=== PATIENT | female | born 1950 | race Caucasian/White ===

== ENCOUNTER 2016-07-30 16:57 | Inpatient (IN) | payer OTHER, MEDICARE ==
[2016-07-30] VITALS (7 sets, daily range): BP systolic 105–138; BP diastolic 71–80; PULSE 61–78; RESP 16–20; TEMP 97.7–98.5; O2SAT 93–96
[~2016-07-30] VITALS: Ht 167.6 cm; Wt 77.1 kg
[~2016-07-30 16:57] MED LIST: COUM2TAB PO; FISH1000 PO; IRONTAB5 PO; LOVA1TAB47 PO; NABU500T PO; OXYC-360 PO; OYST500T77 PO; SERT100 PO; VITA500L4 PO
[2016-07-30] MEDS ORDERED: NITROGLYCERIN 0.4 MG SL 25 TABS/BTL SL STA (17:08)
[2016-07-30] MEDS ORDERED: SODIUM CHLOR 0.9% 1000 ML INJ 1,000 ML IV ONE (17:08)
--- NOTE | 2016-07-30 17:08 | PD ---
HPI Chief Complaint: General Weakness Time Seen by Provider: 17:08 Travel History International Travel<30 days: No Contact w/Intl Traveler<30days: No Traveled to known affect area: No History of Present Illness HPI Patient 66-year-old female presents emergency Department with substernal chest pain tightness radiating down the left arm and now into her left flank and into the back. Patient states his symptoms started approximate hour ago he become it was shortness of breath. She has history of hyper-lipidemia and smoking. She took 581 mg aspirin prior to arrival. Patient states she feels pretty lousy currently. She's never had pain like this before. No stress test in the past catheterization is never seen a windows software engineer. No recent surgeries no allergies. She does have history of surgical repair of both of her hips as well as breast implants. Patient states the pain is gradually worsening associated with some mild nausea without vomiting. PFSH Past Medical History Arthritis: Yes Blood Disorders: No Cancer: No Cardiovascular Problems: Yes High Cholesterol: Yes Endocrine: No Genitourinary: No Immune Disorder: No Musculoskeletal: Yes Neurologic: No Psychiatric: No Reproductive: No Respiratory: No Past Surgical History Body Medical Devices: FOSTER. BREASTS Joint Replacement: Yes (LEFT THR) Social History Alcohol Use: Yes (OCCAS) Tobacco Use: Yes (1 /2 PPD) Substance Use: No Allergies-Medications (Allergen,Severity, Reaction): Coded Allergies: Sulfa (Verified Allergy, Severe, HIVES, 04/06/08) Reported Meds & Prescriptions Reported Meds & Active Scripts Active Reported Coumadin 2 mg (Warfarin Sodium) 2 Mg Tab 2 Mg PO DAILY 30 Days Percocet (Oxycodone/Acetaminophen) 5 Mg/325 Mg Tab 1 Tab PO DIRECTED FOR PAIN Mevacor (Lovastatin) 20 Mg Tab 20 Mg PO HS Vitamin C (Ascorbic Acid) 500 Mg/5 Ml Syrp 500 Mg PO BID Fish Oil 1,000 Mg Cap 1,000 Mg PO DAILY Calcium 500 Mg Tab 500 Mg PO TID Relafen 500 mg (Nabumetone) 500 Mg Tab 500 Mg PO BID [Iron] 2 Tab PO DAILY Zoloft (Sertraline HCl) 100 Mg Tab 150 Mg PO DAILY Review of Systems Except as stated in HPI: all other systems reviewed are Neg Physical Exam Narrative GENERAL: Well-developed, well-nourished, uncomfortable appearance. SKIN: Focused skin assessment warm/dry. HEAD: Atraumatic. Normocephalic. EYES: Pupils equal and round. No scleral icterus. No injection or drainage. ENT: No nasal bleeding or discharge. Mucous membranes pink and moist. NECK: Trachea midline. No JVD. CARDIOVASCULAR: Regular rate and rhythm. No murmur appreciated. 2+ bilateral equal pulses in all 4 extremities. RESPIRATORY: No accessory muscle use. wheezes in the left upper and left lower lobe. Clear on the right. Breath sounds equal bilaterally. Good air entry bilaterally. GASTROINTESTINAL: Abdomen soft, non-tender, nondistended. Hepatic and splenic margins not palpable. MUSCULOSKELETAL: No obvious deformities. No clubbing. No cyanosis. No edema. NEUROLOGICAL: Awake and alert. No obvious cranial nerve deficits. Motor grossly within normal limits. Normal speech. PSYCHIATRIC: Appropriate mood and affect; insight and judgment normal. Data Data Last Documented VS Vital Signs Date Time Temp Pulse Resp B/P Pulse Ox O2 Delivery O2 Flow Rate FiO2 07/30/16 17:04 97.7 61 20 138/78 Orders Troponin I (07/30/16 17:08) Ckmb (Isoenzyme) Profile (07/30/16 17:08) Complete Blood Count With Diff (07/30/16 17:08) I-Stat Profile (07/30/16 17:08) I-Stat Creatinine (07/30/16 17:08) Calcium (07/30/16 17:08) Magnesium (Mg) (07/30/16 17:08) Prothrombin Time / Inr (Pt) (07/30/16 17:08) Act Partial Throm Time (Ptt) (07/30/16 17:08) B-Type Natriuretic Peptide (07/30/16 17:08) Chest, Single Ap (07/30/16 17:08) Electrocardiogram (07/30/16 17:08) Oxygen Administration (07/30/16 17:08) Iv Access Insert/Monitor (07/30/16 17:08) Oximetry (07/30/16 17:08) Sodium Chlor 0.9% 1000 Ml Inj (Ns 1000 M (07/30/16 17:08) Sodium Chloride 0.9% Flush (Ns Flush) (07/30/16 17:15) Nitroglycerin Sl (Nitrostat Sl) (07/30/16 17:08) Nitroglycerin-Dextrose Inj (Nitroglyceri (07/30/16 17:15) Albuterol Neb (Albuterol Neb) (07/30/16 17:30) Heparin Inj (Heparin Inj) (07/30/16 17:30) Electrocardiogram (07/30/16 ) Admit Order (Ed Use Only) (07/30/16 ) Labs Laboratory Tests Test 07/30/16 17:10 White Blood Count 9.9 TH/MM3 Red Blood Count 4.60 MIL/MM3 Hemoglobin 14.8 GM/DL Bedside Hemoglobin 14.6 G/DL Hematocrit 42.2 % Bedside Hematocrit 43.0 % Mean Corpuscular Volume 91.6 FL Mean Corpuscular Hemoglobin 32.2 PG Mean Corpuscular Hemoglobin 35.1 % Concent Red Cell Distribution Width 13.6 % Platelet Count 256 TH/MM3 Mean Platelet Volume 7.3 FL Neutrophils (%) (Auto) 58.4 % Lymphocytes (%) (Auto) 29.8 % Monocytes (%) (Auto) 9.8 % Eosinophils (%) (Auto) 1.7 % Basophils (%) (Auto) 0.3 % Neutrophils # (Auto) 5.8 TH/MM3 Lymphocytes # (Auto) 2.9 TH/MM3 Monocytes # (Auto) 1.0 TH/MM3 Eosinophils # (Auto) 0.2 TH/MM3 Basophils # (Auto) 0.0 TH/MM3 CBC Comment DIFF FINAL Differential Comment Prothrombin Time 10.7 SEC Prothromb Time International 1.0 RATIO Ratio Activated Partial 26.1 SEC Thromboplast Time Bedside Sodium 141 MMOL/L Bedside Potassium 3.9 MMOL/L Bedside Chloride 104 MMOL/L Bedside Blood Urea Nitrogen 16 MG/DL Bedside Creatinine 1.1 MG/DL Bedside Glucose 141 MG/DL Calcium Level 9.2 MG/DL Magnesium Level 2.0 MG/DL Total Creatine Kinase 71 U/L Troponin I LESS THAN 0.02 NG/ML B-Type Natriuretic Peptide 15 PG/ML MDM Medical Decision Making Medical Screen Exam Complete: Yes Emergency Medical Condition: Yes Interpretation(s) EKG shows normal sinus rhythm with a normal axis and normal R-wave progression. There are ST elevations in V2 through V4 with possible J-point elevation. However there are some minimal ST depressions in 23 and aVF. This does meet criteria for an acute STEMI. Differential Diagnosis STEMI, COPD exacerbation, PE, pneumonia, dissection seems unlikely. Narrative Course Patient is 66-year-old female room in the emergency department. She appears uncomfortable and her EKG is consistent with an acute STEMI. A STEMI alert was activated at 1909. Dr. Granger was paged and I spoke with him at 191. Dr. Granger is at bedside at 1920, he wanted to get a repeat EKG which was repeated and then decision was made to take her to catheter lab. She did have 5x81 mg aspirins prior to arrival. She had orders for heparin and DuoNeb however she did not receive these prior to going to catheter lab. Care was transferred to Dr. Granger. Patient does have wheezing on left side of her chest but says that she does not have a history of COPD or asthma. Her oxygen saturation is appropriate. At this time early reperfusion needs to be her immediate goal of therapy. Discussed with Dr. Granger may receive albuterol on catheter table at his discretion. Last 24 hours Impressions Chest X-Ray 07/30/16 0328 Signed Impressions: Service Date/Time: July 17:07 - CONCLUSION: No acute cardiopulmonary disease identified. Abundio Ervin MD Diagnosis Primary Impression: STEMI (ST elevation myocardial infarction) Qualified Code: I21.3 - ST elevation myocardial infarction (STEMI), unspecified artery Additional Impression: Shortness of breath Admitting Information Admitting Physician Requests: Admit Condition: Serious Matthew Ramírez MD Jul 30, 2016 17:08
[2016-07-30] MEDS ORDERED: NITROGLYCERIN-DEXTROSE INJ 250 ML IV SCH (17:15)
--- NOTE | 2016-07-30 17:25 | RADRPT ---
EXAM DATE/TIME: 07/30/2016 17:07 [facility] COMPARISON: No previous studies available for comparison. INDICATIONS : Stemi Alert. MEDICAL HISTORY : None. SURGICAL HISTORY : None. ENCOUNTER: Initial ACUITY: 1 day PAIN SCORE: 0/10 LOCATION: Bilateral chest FINDINGS: Single AP view of the chest. The lungs are clear. Cardiomediastinal silhouette within normal limits. No evidence of pleural effusion or pneumothorax. Prominent right-sided glenohumeral joint arthrosis. CONCLUSION: No acute cardiopulmonary disease identified. Abundio Ervin MD on July 30, 2016 at 17:23 Board Certified Radiologist. This report was verified electronically.
[2016-07-30] MEDS ORDERED: HEPARIN SODIUM - IV 10,000 UNITS/10 ML VIAL IV ONE (17:30)
[2016-07-30] MEDS ORDERED: RESP: ALBUTEROL 0.63 MG/3 ML NEB (SCH) NEB ONE (17:30)
[2016-07-30 17:34] LABS: AUTOMATED NEUTROPHIL # 5.8 TH/MM3 (1.8-7.7); BASOPHIL % 0.3 % (0.0-2.0); EOSINOPHIL # 0.2 TH/MM3 (0-0.4); EOSINOPHIL % 1.7 % (0.0-4.0); HEMATOCRIT 42.2 % (35.0-46.0); HEMO FLAGS DIFF FINAL; LYMPH % 29.8 % (9.0-44.0); LYMPHOCYTE # 2.9 TH/MM3 (1.0-4.8); MEAN CELL VOLUME 91.6 FL (80.0-100.0); MEAN CORPUSCULAR HEMOGLOBIN 32.2 PG (27.0-34.0); MEAN CORPUSCULAR HGB CONC 35.1 % (32.0-36.0); MONO % 9.8 % (0.0-8.0); NEUT % 58.4 % (16.0-70.0); PLATELET COUNT 256 TH/MM3 (150-450); RED CELL DISTRIBUTION WIDTH 13.6 % (11.6-17.2); WHITE BLOOD COUNT 9.9 TH/MM3 (4.0-11.0)
[2016-07-30] MEDS ORDERED: IOHEXOL 350 MG/ML 100 ML BTL (for Cath Lab) OTHER ONE (17:34)
[2016-07-30] MEDS ORDERED: IOHEXOL 350 MG/ML 50 ML BTL (for Cath Lab) OTHER ONE (17:34)
[2016-07-30 17:36] LABS: I-STAT POTASSIUM 3.9 MMOL/L (3.5-4.9); I-STAT SODIUM 141 MMOL/L (138-146)
[2016-07-30] MEDS ORDERED: HEPARIN-NS/PF INJ 500 ML ONE (17:37)
[2016-07-30] MEDS ORDERED: HEPARIN SODIUM - IV 10,000 UNITS/10 ML VIAL ONE (17:38)
[2016-07-30] MEDS ORDERED: RESP: ALBUTEROL 2.5 MG/3 ML NEB (SCH) ONE (17:42)
[2016-07-30] MEDS ORDERED: STERILE WATER FOR INJECTION 10 ML VIAL ONE (17:45)
[2016-07-30] MEDS ORDERED: BIVALIRUDIN 250 MG VIAL ONE (17:45)
[2016-07-30 17:47] LABS: APTT (PATIENT) 26.1 SEC (24.3-30.1); PROTHROMBIN TIME - PATIENT 10.7 SEC (9.8-11.6)
[2016-07-30 18:02] LABS: CREATINE KINASE 71 U/L (26-192)
[2016-07-30] MEDS ORDERED: FUROSEMIDE 40 MG/4 ML VIAL ONE (18:08)
[2016-07-30] MEDS ORDERED: TICAGRELOR 90 MG TAB PO ONE ×2 (18:14→18:30)
[2016-07-30] MEDS ORDERED: NITROGLYCERIN 0.4 MG SL 25 TABS/BTL SL PRN (18:30)
[2016-07-30] MEDS ORDERED: MISC INFORMATION XX ONE (18:30)
--- NOTE | 2016-07-30 19:15 | MB ---
cc: NADIA VARNER DATE OF CONSULTATION 07/30/16 1951 HISTORY OF PRESENT ILLNESS 66-year-old female active smoker, past medical history of hypertension who presents to the ER with severe of left-sided chest pressure radiating to the back associated with diaphoresis and shortness of breath. EKG done shows anterior STEMI suggestive myocardial injury. STEMI alert was activated. The patient was given aspirin, nitroglycerin and heparin in the ER. Currently, the patient still reports chest discomfort. She denies shortness of breath or palpitations. REVIEW OF SYSTEMS Negative except for the ones mentioned in HPI. PAST MEDICAL HISTORY 1. Hypertension, 2. Active smoker. 3. Bilateral hip surgery 4. Breast implantation SOCIAL HISTORY She is an active smoker. Denies illicit drug use or alcohol abuse. FAMILY HISTORY Noncontributory. PHYSICAL EXAMINATION VITAL SIGNS: Temperature 97, respiratory rate 18, heart rate 60, O2 sat 100% in room air. GENERAL: She is awake, alert and oriented x3 in no acute distress. NECK: No JVD, no carotid bruits. HEART: Regular rate and rhythm. No murmurs, rubs or gallops. LUNGS: There is left inspiratory wheezing. No rales or rhonchi. ABDOMEN: Soft, nontender, nondistended. Positive bowel sounds. EXTREMITIES: No cyanosis or edema. Pulses throughout. LABORATORY DATA The labs are still pending. IMAGING STUDIES Chest x-ray is unremarkable. CARDIOLOGY STUDIES EKG shows sinus rhythm with ST elevations leads V2-V4 ASSESSMENT/PLAN 66-year-old female with cardiac risk factors that include smoking, hypertension that presented with an ST elevation GA. The patient remains hemodynamically stable, did complain of some chest discomfort. Given STEMI, EKG changes and the cardiac complaints, the patient will be taken emergently to the cardiac medical laboratory technicians for PCI. Risks, benefits of left heart cath/intervention including but not limited to bleeding, infection, acute kidney injury, neurovascular trauma, open heart surgery, stroke and have been explained to the patient. The patient understands risks and she is willing to proceed. Continue aggressive medical management. RECOMMENDATIONS 1. LHC/PCI. Thank you for the opportunity to take part in the care of this patient. Further therapy to be determined. MD JP Cleveland/SA /5:37 PM /7:03 PM [facility]USRe[facility]
[2016-07-30] MEDS: METOPROLOL TARTRATE 25 MG TAB PO SCH (20:58)
[2016-07-30] MEDS: ATORVASTATIN 10 MG TAB PO SCH (20:58)
--- NOTE | 2016-07-30 22:27 | MA ---
cc: NADIA VARNER MD DATE 07/30/16 1950 PROCEDURE PERFORMED 1. Left heart catheterization 2. Selective right and left coronary angiography 3. Left ventriculogram 4. Right common femoral artery angiography 5. Successful PCI to proximal LAD in the setting of a STEMI INDICATIONS STEMI. PROCEDURE IN DETAIL Consent signed. The patient was taken emergently to the cardiac medical lab assistant. The right groin was prepped and draped in sterile fashion. Using 1% lidocaine for local anesthesia and a micropuncture kit, a 6-Yoruba sheath was inserted into the right common femoral artery. Right common femoral artery angiography was performed to confirm position of the sheath. Then selective right and left coronary angiography was performed with a JR-4 diagnostic catheter and EBU 3.5 6Fr guide respectively. Angiomax was given for IV anticoagulation. The patient had a 100% occlusion of the mid LAD (JOHAN 0). LM was engaged with EBU guide. A choice PT wire was used to wire the LAD. The wire successfully crossed the lesion and was anchored distally. The lesion was predilated with a 2.5x12mm balloon followed by the insertion and deployment of a [id number] drug-eluting stent. Final angiographic views revealed a good stent apposition and expansion with JOHAN III flow. The patient tolerated the procedure well without complications. Patient had a brief episode of reperfusion rhythm with no major significant. Patient tolerated procedure well without complications. The right groin access site was closed with a Perclose device. Estimated blood loss less than 50 mL. Total contrast 125 mL. The patient was loaded with Brilinta after the procedure. ANGIOGRAPHIC RESULTS LEFT VENTRICLE Left ventricular pressure was 106/19 with an LVEDP of 25. The aortic pressure was 101/45 with a mean of 73. The left ventriculogram revealed a symmetrically jacki left ventricle with an estimated ejection fraction of 60%. There was no gradient upon pullback from the left ventricle to the aorta. ANGIOGRAPHIC RESULTS 1. RCA: Dominant vessel has minimal luminal irregularities throughout. It is calcified. The mid RCA has 20% concentric lesion and 10% also distal lesion. The PDA is patent with JOHAN III flow. 2. Left main patent with JOHAN III flow. 3. The LAD is 100% occluded after the second septal. The first and second diagonals are patent with nonobstructive coronary artery disease. 5. The left circumflex artery has minimal luminal irregularities throughout and it has a proximal 40% lesion and JOHAN III flow. CONCLUSION 1. Successful PCI/JOSÉ to mid-LAD in the setting of ST elevation HI 2. Elevated LVEDP. RECOMMENDATIONS Admit to the cardiac unit. Continue dual antiplatelet agent with aspirin and Brilinta as well as aggressive medical management for secondary prevention of coronary artery disease. The patient should be on aspirin, Brilinta, statins, beta blockers, ESTHELA inhibitors as tolerated. 2-D echocardiogram before discharge. Smoking cessation. MD JP Cleveland/ /6:30 PM /10:09 PM MTDD
[2016-07-31] VITALS (26 sets, daily range): BP systolic 86–105; BP diastolic 54–71; PULSE 51–84; RESP 16–20; TEMP 97.5–98.7; O2SAT 94–97
[2016-07-31 05:39] LABS: AUTOMATED NEUTROPHIL # 6.7 TH/MM3 (1.8-7.7); BASOPHIL % 0.4 % (0.0-2.0); EOSINOPHIL # 0.1 TH/MM3 (0-0.4); EOSINOPHIL % 1.2 % (0.0-4.0); HEMATOCRIT 40.7 % (35.0-46.0); HEMO FLAGS DIFF FINAL; LYMPH % 21.2 % (9.0-44.0); LYMPHOCYTE # 2.1 TH/MM3 (1.0-4.8); MEAN CORPUSCULAR HEMOGLOBIN 31.9 PG (27.0-34.0); MEAN CORPUSCULAR HGB CONC 34.7 % (32.0-36.0); MONO % 10.7 % (0.0-8.0); NEUT % 66.5 % (16.0-70.0); PLATELET COUNT 239 TH/MM3 (150-450); RED BLOOD COUNT 4.42 MIL/MM3 (4.00-5.30); RED CELL DISTRIBUTION WIDTH 13.4 % (11.6-17.2)
[2016-07-31 05:56] LABS: BICARBONATE 26.9 MEQ/L (21.0-32.0); POTASSIUM 3.5 MEQ/L (3.5-5.1)
--- NOTE | 2016-07-31 08:29 | PD.CARD.PN ---
Subjective Subjective Remarks no overnight events no chest pain Objective Medications Current Medications Medications (Trade) Dose Ordered Sig/Sandy Route Start Time Stop Time Status Last Admin Sodium Chloride 2 ml 2 ml UNSCH PRN IVF 07/30/16 17:15 (Nitroglycerin-Dextrose Inj) 250 ml @ 0 mls/hr TITRATE IV 07/30/16 17:15 (Nitrostat Sl) 0.4 mg Q5M PRN SL 07/30/16 18:30 (Lopressor) 12.5 mg BID PO 07/30/16 21:00 07/30/16 20:58 (Prinivil) 5 mg DAILY PO 07/31/16 09:00 (Lipitor) 10 mg HS PO 07/30/16 21:00 07/30/16 20:58 (Aspirin Chew) 81 mg DAILY PO 07/31/16 09:00 (Brilinta) 90 mg BID PO 07/31/16 09:00 Vital Signs / I&O Vital Signs Date Time Temp Pulse Resp B/P Pulse Ox O2 Delivery O2 Flow Rate FiO2 07/31/16 08:00 64 07/31/16 07:00 63 07/31/16 07:00 98.0 71 20 103/71 97 07/31/16 06:00 62 07/31/16 05:00 60 07/31/16 04:00 64 07/31/16 03:00 58 07/31/16 03:00 98.2 67 16 105/63 95 07/31/16 02:00 68 07/31/16 01:00 62 07/31/16 00:00 66 07/30/16 23:00 98.5 78 16 105/71 93 07/30/16 23:00 70 07/30/16 22:00 74 07/30/16 21:00 70 07/30/16 20:00 78 07/30/16 19:00 98.5 72 16 116/80 93 07/30/16 18:57 76 20 121/71 96 07/30/16 17:04 97.7 61 20 138/78 I/O 07/30/16 07/30/16 07/30/16 07/31/16 07/31/16 07/31/16 07:00 15:00 23:00 07:00 15:00 23:00 Intake Total 480 ml Output Total 1750 ml Balance -1270 ml Intake Oral 480 ml Output Urine Total 1750 ml Physical Exam GENERAL: Well-nourished, well-developed patient. SKIN: Warm and dry. HEAD: Normocephalic. EYES: No scleral icterus. No injection or drainage. NECK: Supple, trachea midline. No JVD or lymphadenopathy. CARDIOVASCULAR: Regular rate and rhythm without murmurs, gallops, or rubs. RESPIRATORY: Breath sounds equal bilaterally. No accessory muscle use. GASTROINTESTINAL: Abdomen soft, non-tender, nondistended. EXTREMITIES: No cyanosis, or edema. NEUROLOGICAL: Awake, alert, and oriented x 3. Non-focal. Laboratory Laboratory Tests Test 07/30/16 07/31/16 17:10 04:53 White Blood Count 9.9 TH/MM3 10.0 TH/MM3 Red Blood Count 4.60 MIL/MM3 4.42 MIL/MM3 Hemoglobin 14.8 GM/DL 14.1 GM/DL Bedside Hemoglobin 14.6 G/DL Hematocrit 42.2 % 40.7 % Bedside Hematocrit 43.0 % Mean Corpuscular Volume 91.6 FL 92.0 FL Mean Corpuscular Hemoglobin 32.2 PG 31.9 PG Mean Corpuscular Hemoglobin 35.1 % 34.7 % Concent Red Cell Distribution Width 13.6 % 13.4 % Platelet Count 256 TH/MM3 239 TH/MM3 Mean Platelet Volume 7.3 FL 7.5 FL Neutrophils (%) (Auto) 58.4 % 66.5 % Lymphocytes (%) (Auto) 29.8 % 21.2 % Monocytes (%) (Auto) 9.8 % 10.7 % Eosinophils (%) (Auto) 1.7 % 1.2 % Basophils (%) (Auto) 0.3 % 0.4 % Neutrophils # (Auto) 5.8 TH/MM3 6.7 TH/MM3 Lymphocytes # (Auto) 2.9 TH/MM3 2.1 TH/MM3 Monocytes # (Auto) 1.0 TH/MM3 1.1 TH/MM3 Eosinophils # (Auto) 0.2 TH/MM3 0.1 TH/MM3 Basophils # (Auto) 0.0 TH/MM3 0.0 TH/MM3 CBC Comment DIFF FINAL DIFF FINAL Differential Comment Prothrombin Time 10.7 SEC Prothromb Time International 1.0 RATIO Ratio Activated Partial 26.1 SEC Thromboplast Time Bedside Sodium 141 MMOL/L Bedside Potassium 3.9 MMOL/L Bedside Chloride 104 MMOL/L Bedside Blood Urea Nitrogen 16 MG/DL Bedside Creatinine 1.1 MG/DL Bedside Glucose 141 MG/DL Calcium Level 9.2 MG/DL 9.3 MG/DL Magnesium Level 2.0 MG/DL Total Creatine Kinase 71 U/L Troponin I LESS THAN 0.02 NG/ML B-Type Natriuretic Peptide 15 PG/ML Sodium Level 141 MEQ/L Potassium Level 3.5 MEQ/L Chloride Level 105 MEQ/L Carbon Dioxide Level 26.9 MEQ/L Anion Gap 9 MEQ/L Blood Urea Nitrogen 19 MG/DL Creatinine 0.78 MG/DL Estimat Glomerular Filtration 74 ML/MIN Rate Random Glucose 90 MG/DL Triglycerides Level 89 MG/DL Cholesterol Level 154 MG/DL LDL Cholesterol 71 MG/DL HDL Cholesterol 65.0 MG/DL Cholesterol/HDL Ratio 2.36 RATIO Imaging Last Impressions Chest X-Ray 07/30/16 0848 Signed Impressions: Service Date/Time: July 17:07 - CONCLUSION: No acute cardiopulmonary disease identified. Abundio Ervin MD Assessment and Plan Problem List: (1) STEMI (ST elevation myocardial infarction) Assessment and Plan: s/p PCI/JOSÉ to LAD Chest pain free Ambulating without difficulty Cont DAPT with ASA an Brillinta BB, ACEi, Statin Smoking cessation 2Decho today Problem Qualifiers (1) STEMI (ST elevation myocardial infarction): Qualified Code: I21.3 - ST elevation myocardial infarction (STEMI), unspecified artery Chong Cameron MD Jul 31, 2016 08:29
[2016-07-31] MEDS: ASPIRIN 81 MG CHEW TAB PO SCH (09:41)
[2016-07-31] MEDS: LISINOPRIL 5 MG TAB PO SCH (09:42)
[2016-07-31] MEDS: METOPROLOL TARTRATE 25 MG TAB PO SCH ×2 (09:42→20:26)
[2016-07-31] MEDS: TICAGRELOR 90 MG TAB PO SCH ×2 (09:42→20:26)
[2016-07-31] MEDS ORDERED: METO25TA3 PO (10:02)
[2016-07-31] MEDS ORDERED: LIPI10TA PO (10:02)
[2016-07-31] MEDS ORDERED: BRIL90TA PO (10:02)
[2016-07-31] MEDS ORDERED: LISI-519 PO (10:02)
[2016-07-31] MEDS ORDERED: ASPI81TA11 PO (10:03)
--- NOTE | 2016-07-31 10:09 | PD.CONS ---
[facility] By Dr[facility] Granger Reason for Consult Medical management Primary Care Physician Unknown Diagnoses: History of Present Illness The patient is a 66-year-old female with past medical history of arthritis who is presenting to the hospital with chest pain. The patient said that at around 3 PM she was on the computer when she felt like she had decreasing energy. She went to her bed to lay down and then she developed chest pain. She said the pain was in the center of her chest and she described the pain as a pressure- like sensation. She rated the pain as a 7 out of 10 in severity. She said once the pain started it did not stop. She said eventually the pain started to radiate around her breasts all the way to her back. The patient's saw her slumped over and gave her 5 baby aspirins and brought her to the emergency department. The patient was endorsing cold sweats but she denied any shortness of breath. The emergency department she was found to have ST elevations and was taken to [facility] where she received a stent.. She is currently asymptomatic. She denies any chest pain or shortness of breath. She denies any discomfort at the right groin catheterization site. Review of Systems Except as stated in HPI: all other systems reviewed are Neg Past Family Social History Allergies: Coded Allergies: Sulfa (Verified Allergy, Severe, HIVES, 04/06/08) Past Medical History Osteoarthritis Past Surgical History Bilateral hip replacements Breast augmentation Active Ordered Medications Current Medications Medications (Trade) Dose Ordered Sig/Sandy Route Start Time Stop Time Status Last Admin Sodium Chloride 2 ml 2 ml UNSCH PRN IVF 07/30/16 17:15 (Nitroglycerin-Dextrose Inj) 250 ml @ 0 mls/hr TITRATE IV 07/30/16 17:15 (Nitrostat Sl) 0.4 mg Q5M PRN SL 07/30/16 18:30 (Lopressor) 12.5 mg BID PO 07/30/16 21:00 07/31/16 09:42 (Prinivil) 5 mg DAILY PO 07/31/16 09:00 07/31/16 09:42 (Lipitor) 10 mg HS PO 07/30/16 21:00 07/30/16 20:58 (Aspirin Chew) 81 mg DAILY PO 07/31/16 09:00 07/31/16 09:41 (Brilinta) 90 mg BID PO 07/31/16 09:00 07/31/16 09:42 Family History CAD Osteoarthritis Social History The patient smokes 1-1/2 packs daily. She drinks socially. Physical Exam Vital Signs Vital Signs Date Time Temp Pulse Resp B/P Pulse Ox O2 Delivery O2 Flow Rate FiO2 07/31/16 09:00 84 07/31/16 08:00 64 07/31/16 07:00 63 07/31/16 07:00 98.0 71 20 103/71 97 07/31/16 06:00 62 07/31/16 05:00 60 07/31/16 04:00 64 07/31/16 03:00 58 07/31/16 03:00 98.2 67 16 105/63 95 07/31/16 02:00 68 07/31/16 01:00 62 07/31/16 00:00 66 07/30/16 23:00 98.5 78 16 105/71 93 07/30/16 23:00 70 07/30/16 22:00 74 07/30/16 21:00 70 07/30/16 20:00 78 07/30/16 19:00 98.5 72 16 116/80 93 07/30/16 18:57 76 20 121/71 96 07/30/16 17:04 97.7 61 20 138/78 Physical Exam GENERAL: This is a well-nourished, well-developed patient, in no apparent distress. SKIN: No rashes, ecchymoses or lesions. Cool and dry. HEAD: Atraumatic. Normocephalic. No temporal or scalp tenderness. EYES: Pupils equal round and reactive. Extraocular motions intact. No scleral icterus. No injection or drainage. ENT: Nose without bleeding, purulent drainage or septal hematoma. Throat without erythema, tonsillar hypertrophy or exudate. Uvula midline. Airway patent. NECK: Trachea midline. No JVD or lymphadenopathy. Supple, nontender, no meningeal signs. CARDIOVASCULAR: Distant heart sounds. Regular rate and rhythm without murmurs, gallops, or rubs. RESPIRATORY: Clear to auscultation. Breath sounds equal bilaterally. No wheezes , rales, or rhonchi. GASTROINTESTINAL: Abdomen soft, non-tender, nondistended. No hepato-splenomegaly , or palpable masses. No guarding. MUSCULOSKELETAL: Extremities without clubbing, cyanosis, or edema. No joint tenderness, effusion, or edema noted. NEUROLOGICAL: Awake and alert. Cranial nerves II through XII intact. Motor and sensory grossly within normal limits. Five out of 5 muscle strength in all muscle groups. Normal speech. PSYCH: Mood and affect appropriate. Laboratory Laboratory Tests Test 07/30/16 07/31/16 17:10 04:53 White Blood Count 9.9 10.0 Red Blood Count 4.60 4.42 Hemoglobin 14.8 14.1 Bedside Hemoglobin 14.6 Hematocrit 42.2 40.7 Bedside Hematocrit 43.0 Mean Corpuscular Volume 91.6 92.0 Mean Corpuscular Hemoglobin 32.2 31.9 Mean Corpuscular Hemoglobin 35.1 34.7 Concent Red Cell Distribution Width 13.6 13.4 Platelet Count 256 239 Mean Platelet Volume 7.3 7.5 Neutrophils (%) (Auto) 58.4 66.5 Lymphocytes (%) (Auto) 29.8 21.2 Monocytes (%) (Auto) 9.8 10.7 Eosinophils (%) (Auto) 1.7 1.2 Basophils (%) (Auto) 0.3 0.4 Neutrophils # (Auto) 5.8 6.7 Lymphocytes # (Auto) 2.9 2.1 Monocytes # (Auto) 1.0 1.1 Eosinophils # (Auto) 0.2 0.1 Basophils # (Auto) 0.0 0.0 CBC Comment DIFF FINAL DIFF FINAL Differential Comment Prothrombin Time 10.7 Prothromb Time International 1.0 Ratio Activated Partial 26.1 Thromboplast Time Bedside Sodium 141 Bedside Potassium 3.9 Bedside Chloride 104 Bedside Blood Urea Nitrogen 16 Bedside Creatinine 1.1 Bedside Glucose 141 Calcium Level 9.2 9.3 Magnesium Level 2.0 Total Creatine Kinase 71 Troponin I LESS THAN 0.02 B-Type Natriuretic Peptide 15 Sodium Level 141 Potassium Level 3.5 Chloride Level 105 Carbon Dioxide Level 26.9 Anion Gap 9 Blood Urea Nitrogen 19 Creatinine 0.78 Estimat Glomerular Filtration 74 Rate Random Glucose 90 Triglycerides Level 89 Cholesterol Level 154 LDL Cholesterol 71 HDL Cholesterol 65.0 Cholesterol/HDL Ratio 2.36 Result Diagram: 07/31/16 0453 07/31/16 0453 Imaging Last Impressions Chest X-Ray 07/30/16 1047 Signed Impressions: Service Date/Time: July 17:07 - CONCLUSION: No acute cardiopulmonary disease identified. Abundio Ervin MD Assessment and Plan Assessment and Plan STEMI The pt had chest pressure and EKG with ST elevations in V2, V3 and V4. A STEMI alert was called and the pt is s/p JOSÉ to the LAD. She is asymptomatic. - continue cardiac regimen including ASA, Lopressor, lisinopril, statin and Brilinta. - echo pending. - smoking cessation instruction. - follow-up with cardiology. Nicotine dependence The patient sometimes smokes over one half packs daily. Per family she wheezes and often is short of breath. - Cessation instruction. PPx: Per cardiology. Discussed Condition With Pt, pt's family, nurse. Adan Odonnell DO Jul 31, 2016 10:09
--- NOTE | 2016-07-31 16:26 | EKG ---
Date Performed: 07/30/2016 Time Performed: 17:04:47 PTAGE: 66 years EKG: SINUS BRADYCARDIA WITH OCCASIONAL SUPRAVENTRICULAR PREMATURE COMPLEXES ST ELEVATION, PROBAB LY EARLY REPOLARIZATION BORDERLINE ECG INTERPRETATION BASED ON A DEFAULT AGE OF 40 YEARS PREVIOUS TRACING : 07/30/2016 17.03 DOCTOR: Mimi Veronica Interpretating Date/Time 07/31/2016 16:22:32
--- NOTE | 2016-07-31 17:46 | EC ---
Study Study Date:07/31/2016 STUDY CONCLUSIONS SUMMARY - Left ventricle: The cavity size was normal. Systolic function was mildly reduced. The estimated ejection fraction was in the range of 45% to 50%. Akinesis of the apical myocardium. Hypokinesis of the anteroseptal myocardium. - Mitral valve: Mild regurgitation. - Tricuspid valve: Mild regurgitation. If LV function is below 40, please consider prescribing an ACEI or ARB or document rationale for non-use. PROCEDURE DATA STUDY STATUS: Elective. Procedure: Transthoracic echocardiography. Image quality was good. Scanning was performed from the parasternal, apical, and subcostal acoustic windows. Study completion: The patient tolerated the procedure well. Transthoracic echocardiography. M-mode, complete 2D, complete spectral Doppler, and color Doppler. Height: Height: 66in. Weight: Weight: 186.6lb. Body mass index: BMI: 30.2kg/m^2. Body surface area: BSA: 1.94m^2. Patient status: Inpatient. CARDIAC ANATOMY LEFT VENTRICLE: The cavity size was normal. Systolic function was mildly reduced. The estimated ejection fraction was in the range of 45% to 50%. Regional wall motion abnormalities: Akinesis of the apical myocardium. Hypokinesis of the anteroseptal myocardium. AORTIC VALVE: Trileaflet. Doppler: There was no stenosis. No significant regurgitation. Valve area: 1.84cm^2(VTI). Indexed valve area: 0.95cm^2/m^2 (VTI). Valve area: 2.35cm^2 (Vmax). Indexed valve area: 1.21cm^2/m^2 (Vmax). Mean gradient: 3mm Hg (S). MITRAL VALVE: The valve appears to be grossly normal. Doppler: There was no evidence for stenosis. Mild regurgitation. Peak gradient: 3mm Hg (D). LEFT ATRIUM: The atrium was normal in size. PULMONIC VALVE: The valve appears to be grossly normal. Doppler: There was no evidence for stenosis. No significant regurgitation. TRICUSPID VALVE: The valve appears to be grossly normal. Doppler: There was no evidence for stenosis. Mild regurgitation. PERICARDIUM: There was no pericardial effusion. Patient weight: 186.6lb _Ejection fraction:_ 65-75% _Fractional shortening:_ 32% up to 5Kg 5-11.5Kg 11.6-22.9Kg 23-45Kg 45-57Kg Aortic Root 7-13 <17 13-22 17-27 17-27 LA diam 6-13 <23 24-38 33-47 37-40 RVID 10-17 7-15 7-15 7-18 8-17 LVIDd 12-22 <32 24-38 33-47 37-40 LVPW 2-4 3-6 5-7 6-8 7-8 IVS 2-4 3-6 5-7 6-8 7-8 BASIC MEASUREMENTS ADULT NORMAL Left ventricle LV internal dimension, ED, chordal 50.7 mm 43-52 level, PLAX LV internal dimension, ES, chordal 32.9 mm 23-38 level, PLAX Fractional shortening, chordal level, 35 % >29 PLAX LV posterior wall thickness, ED 8.41 mm IVS/LVPW ratio, ED 1 <1.3 Ventricular septum Septal thickness, ED 8.41 mm Aortic valve Leaflet separation 20 mm 15-26 Aorta Root diameter, ED 28 mm Left atrium Anterior-posterior dimension 29 mm Anterior-posterior dimension index 1.49 cm/m^2 <2.2 BASIC MEASUREMENTS ADULT NORMAL Aortic valve Leaflet separation 20 mm 15-26 DOPPLER MEASUREMENTS ADULT NORMAL Main pulmonary artery Pressure, S 29 mm Hg =30 Aortic valve Peak velocity, S 108 cm/s Mean velocity, S 78.1 cm/s VTI, S 23.9 cm Mean gradient, S 3 mm Hg Valve area, VTI 1.84 cm^2 Valve area index, VTI 0.95 cm^2/m^2 Valve area, Vmax 2.35 cm^2 Valve area index, Vmax 1.21 cm^2/m^2 Mitral valve Peak E-wave velocity 79.3 cm/s Peak A-wave velocity 63.2 cm/s Deceleration time 169 ms 150-230 Peak gradient, D 3 mm Hg Peak E/A ratio 1.3 Tricuspid valve Regurgitant peak velocity 252 cm/s Peak RV-RA gradient, S 25 mm Hg Maximal regurgitant velocity 252 cm/s Systemic veins Estimated CVP 5 mm Hg Right ventricle RV pressure, S *30 mm Hg <30 Pulmonic valve Peak velocity, S 51.9 cm/s LEGEND: Mean values are shown as u=mean value. Asterisk (*) abad values outside specified normal range. Prepared and signed by Vinicio Capps [id number]
[2016-07-31] MEDS: ATORVASTATIN 10 MG TAB PO SCH (20:25)
[2016-07-31] MEDS: SODIUM CHLORIDE 0.9% FLUSH 10 ML FLUSH IVF PRN (20:28)
[2016-08-01] VITALS (15 sets, daily range): BP systolic 89–119; BP diastolic 53–74; PULSE 50–64; RESP 16; TEMP 97.7–97.8; O2SAT 94
[2016-08-01] MEDS: ASPIRIN 81 MG CHEW TAB PO SCH (09:36)
[2016-08-01] MEDS: LISINOPRIL 5 MG TAB PO SCH (09:36)
[2016-08-01] MEDS: TICAGRELOR 90 MG TAB PO SCH (09:36)
[2016-08-01] MEDS: SODIUM CHLORIDE 0.9% FLUSH 10 ML FLUSH IVF PRN (09:38)
[2016-08-01] MEDS: METOPROLOL TARTRATE 25 MG TAB PO SCH (09:38)
--- NOTE | 2016-08-01 13:14 | HHI.PR ---
Subjective Remarks Feeling better. No chest pain Objective Vital Signs Date Time Temp Pulse Resp B/P Pulse Ox O2 Delivery O2 Flow Rate FiO2 08/01/16 12:00 59 08/01/16 11:00 52 08/01/16 11:00 97.8 53 16 89/53 94 08/01/16 10:00 53 08/01/16 09:00 58 08/01/16 08:00 56 08/01/16 07:00 54 08/01/16 07:00 97.7 64 16 106/74 94 08/01/16 06:00 52 08/01/16 05:06 63 16 119/67 94 08/01/16 05:00 56 08/01/16 04:00 54 08/01/16 03:00 60 08/01/16 02:00 52 08/01/16 01:00 54 08/01/16 00:00 50 07/31/16 23:59 51 16 86/54 95 07/31/16 23:00 61 07/31/16 22:00 62 07/31/16 21:00 80 07/31/16 20:00 80 07/31/16 19:52 97.5 53 16 92/63 94 07/31/16 19:00 61 07/31/16 18:00 63 07/31/16 17:00 59 07/31/16 16:00 60 07/31/16 15:00 98.7 73 20 94/66 96 07/31/16 15:00 62 07/31/16 14:00 61 I/O 07/31/16 07/31/16 07/31/16 08/01/16 08/01/16 08/01/16 07:00 15:00 23:00 07:00 15:00 23:00 Intake Total 480 ml 1320 ml 700 ml Output Total 1750 ml 1300 ml Balance -1270 ml 1320 ml -600 ml Intake Oral 480 ml 1320 ml 700 ml Output Urine Total 1750 ml 1300 ml # Voids 5 # Bowel Movements 0 Result Diagram: 07/31/16 0453 07/31/16 0453 Imaging Alert, fully oriented Lungs: ventilated Heart: S1, S2 regular, no gallop Abdomen: soft, no mass Ext: no edema Last Impressions Chest X-Ray 07/30/16 4023 Signed Impressions: Service Date/Time: July 17:07 - CONCLUSION: No acute cardiopulmonary disease identified. Abundio Ervin MD Current Medications Medications (Trade) Dose Ordered Sig/Sandy Route Start Time Stop Time Status Last Admin Sodium Chloride 2 ml 2 ml UNSCH PRN IVF 07/30/16 17:15 08/01/16 09:38 (Nitroglycerin-Dextrose Inj) 250 ml @ 0 mls/hr TITRATE IV 07/30/16 17:15 (Nitrostat Sl) 0.4 mg Q5M PRN SL 07/30/16 18:30 (Lopressor) 12.5 mg BID PO 07/30/16 21:00 08/01/16 09:38 (Prinivil) 5 mg DAILY PO 07/31/16 09:00 08/01/16 09:36 (Lipitor) 10 mg HS PO 07/30/16 21:00 07/31/16 20:25 (Aspirin Chew) 81 mg DAILY PO 07/31/16 09:00 08/01/16 09:36 (Brilinta) 90 mg BID PO 07/31/16 09:00 08/01/16 09:36 Assessment and Plan Problem List: (1) Shortness of breath Status: Acute Plan: Significantly improve. (2) STEMI (ST elevation myocardial infarction) Status: Acute Plan: No chest pain. SP PTCA to LAD Advise to stop smoking and to be compliant to medical regimen Can be DH Follow up Dr Granger Problem Qualifiers (1) STEMI (ST elevation myocardial infarction): Qualified Code: I21.3 - ST elevation myocardial infarction (STEMI), unspecified artery Megan Lion MD Aug 01, 2016 13:14
[2016-08-01] MEDS ORDERED: PILL SPLITTER OTHER PRN (13:30)
--- NOTE | 2016-08-01 13:32 | HHI.DCPOC ---
Discharge Care Plan Diagnosis: (1) STEMI (ST elevation myocardial infarction) (2) Osteoarthritis Goals to Promote Your Health * To prevent worsening of your condition and complications * To maintain your health at the optimal level Directions to Meet Your Goals Take your medications as prescribed Follow your dietary instruction Follow activity as directed Keep your appointments as scheduled Take your immunizations and boosters as scheduled If your symptoms worsen call your PCP, if no PCP go to Urgent Care Center or Emergency Room Smoking is Dangerous to Your Health. Avoid second hand smoke Call the 24-hour hour crisis hotline for domestic abuse at Adan Odonnell DO Aug 01, 2016 13:32
--- NOTE | 2016-08-01 13:36 | HHI.PR ---
Subjective Remarks The patient was sitting in a chair. She was anxious to go home. She had no episodes of palpitations. She denied having any further episodes of numbness in her hands. She denied any chest pain. Discussed with cardiology. Objective Vitals Vital Signs Date Time Temp Pulse Resp B/P Pulse Ox O2 Delivery O2 Flow Rate FiO2 08/01/16 13:00 54 08/01/16 12:00 59 08/01/16 11:00 52 08/01/16 11:00 97.8 53 16 89/53 94 08/01/16 10:00 53 08/01/16 09:00 58 08/01/16 08:00 56 08/01/16 07:00 54 08/01/16 07:00 97.7 64 16 106/74 94 08/01/16 06:00 52 08/01/16 05:06 63 16 119/67 94 08/01/16 05:00 56 08/01/16 04:00 54 08/01/16 03:00 60 08/01/16 02:00 52 08/01/16 01:00 54 08/01/16 00:00 50 07/31/16 23:59 51 16 86/54 95 07/31/16 23:00 61 07/31/16 22:00 62 07/31/16 21:00 80 07/31/16 20:00 80 07/31/16 19:52 97.5 53 16 92/63 94 07/31/16 19:00 61 07/31/16 18:00 63 07/31/16 17:00 59 07/31/16 16:00 60 07/31/16 15:00 98.7 73 20 94/66 96 07/31/16 15:00 62 07/31/16 14:00 61 I/O 07/31/16 07/31/16 07/31/16 08/01/16 08/01/16 08/01/16 07:00 15:00 23:00 07:00 15:00 23:00 Intake Total 480 ml 1320 ml 700 ml Output Total 1750 ml 1300 ml Balance -1270 ml 1320 ml -600 ml Intake Oral 480 ml 1320 ml 700 ml Output Urine Total 1750 ml 1300 ml # Voids 5 # Bowel Movements 0 Result Diagram: 07/31/16 0453 07/31/16 0453 Imaging Last Impressions Chest X-Ray 07/30/16 4333 Signed Impressions: Service Date/Time: July 17:07 - CONCLUSION: No acute cardiopulmonary disease identified. Abundio Ervin MD Objective Remarks GENERAL: This is a well-nourished, well-developed patient, in no apparent distress. SKIN: No rashes, ecchymoses or lesions. Cool and dry. HEAD: Atraumatic. Normocephalic. No temporal or scalp tenderness. EYES: Pupils equal round and reactive. Extraocular motions intact. No scleral icterus. No injection or drainage. ENT: Nose without bleeding, purulent drainage or septal hematoma. Throat without erythema, tonsillar hypertrophy or exudate. Uvula midline. Airway patent. NECK: Trachea midline. No JVD or lymphadenopathy. Supple, nontender, no meningeal signs. CARDIOVASCULAR: Distant heart sounds. Regular rate and rhythm without murmurs, gallops, or rubs. RESPIRATORY: Clear to auscultation. Breath sounds equal bilaterally. No wheezes , rales, or rhonchi. GASTROINTESTINAL: Abdomen soft, non-tender, nondistended. No hepato-splenomegaly , or palpable masses. No guarding. MUSCULOSKELETAL: Extremities without clubbing, cyanosis, or edema. No joint tenderness, effusion, or edema noted. NEUROLOGICAL: Awake and alert. Cranial nerves II through XII intact. Motor and sensory grossly within normal limits. Five out of 5 muscle strength in all muscle groups. Normal speech. PSYCH: Mood and affect appropriate. Procedures Cardiac catheterization Medications and IVs Current Medications Medications (Trade) Dose Ordered Sig/Sandy Route Start Time Stop Time Status Last Admin Sodium Chloride 2 ml 2 ml UNSCH PRN IVF 07/30/16 17:15 08/01/16 09:38 (Nitroglycerin-Dextrose Inj) 250 ml @ 0 mls/hr TITRATE IV 07/30/16 17:15 (Nitrostat Sl) 0.4 mg Q5M PRN SL 07/30/16 18:30 (Lopressor) 12.5 mg BID PO 07/30/16 21:00 08/01/16 09:38 (Lipitor) 10 mg HS PO 07/30/16 21:00 07/31/16 20:25 (Aspirin Chew) 81 mg DAILY PO 07/31/16 09:00 08/01/16 09:36 (Brilinta) 90 mg BID PO 07/31/16 09:00 08/01/16 09:36 (Prinivil) 2.5 mg DAILY PO 08/02/16 09:00 (Pill Splitter) 1 ea UNSCH PRN OTHER 08/01/16 13:30 A/P Assessment and Plan STEMI The pt had chest pressure and EKG with ST elevations in V2, V3 and V4. A STEMI alert was called and the pt is s/p JOSÉ to the LAD. She is asymptomatic. Echocardiogram showed ejection fraction of 45-50%. - continue cardiac regimen including ASA, Lopressor, statin and Brilinta. Lisinopril has been discontinued secondary to relative hypotension. - smoking cessation instruction. - follow-up with cardiology as an outpatient. Nicotine dependence The patient sometimes smokes over one half packs daily. Per family she wheezes and often is short of breath. - Cessation instruction. Bilateral hand numbness The patient has osteoarthritis and endorses hand numbness from time to time. Symptoms have resolved. Possibly secondary to carpal tunnel syndrome. She was knitting prior to the episode in the hospital. - Outpatient follow-up with primary care doctor. PPx: Per cardiology. Discharge Planning Discharge home. Adan Odonnell DO Aug 01, 2016 13:36
[2016-08-02] MEDS ORDERED: LISINOPRIL 5 MG TAB PO SCH (09:00)
== END 2016-08-01 14:31 | disposition home or self-care (01) | DRG 247 ==
LOC: NEPA 16:57 → NEDA 17:29 → HCIS 18:30
PROVIDERS: ADMIT Radiology Vascular & Interventional Radiology; ATTEND Hospitalist
PROC: 027034Z Dilation of Coronary Artery, One Artery with Drug-eluting Intraluminal Device, Percutaneous Approach (ICD-10-PCS; principal; 2016-07-30)
PROC: 4A023N7 Measurement of Cardiac Sampling and Pressure, Left Heart, Percutaneous Approach (ICD-10-PCS; 2016-07-30)
PROC: B2111ZZ Fluoroscopy of Multiple Coronary Arteries using Low Osmolar Contrast (ICD-10-PCS; 2016-07-30)
PROC: B2151ZZ Fluoroscopy of Left Heart using Low Osmolar Contrast (ICD-10-PCS; 2016-07-30)
DX: I21.02 ST elevation (STEMI) myocardial infarction involving left anterior descending coronary artery (principal); I25.82 Chronic total occlusion of coronary artery; E78.5 Hyperlipidemia, unspecified; F17.210 Nicotine dependence, cigarettes, uncomplicated; I25.10 Atherosclerotic heart disease of native coronary artery without angina pectoris; R20.0 Anesthesia of skin; M19.90 Unspecified osteoarthritis, unspecified site; Z88.2 Allergy status to sulfonamides
CPT/HCPCS: 71010; 80048; 80061; 82310; 82435; 82550; 82565; 82947; 83735; 83880; 84132; 84295; 84484; 84520; 85025; 85610; 85730; 92941; 93005; 93306; 93458; C1725; C1760; C1769; C1874; C1887; C1893; G0269; J0583; J1644; J1940; J7613; Q9967

== ENCOUNTER 2017-08-16 09:23 | Emergency (ER) | payer OTHER ==
[~2017-08-16] VITALS: Ht 165.1 cm; Wt 80.0 kg
[~2017-08-16 09:23] MED LIST changes: +ASPI81TA23 PO; +BRIL90TA PO; -COUM2TAB PO; +LIPI10TA PO; +METO25TA3 PO; -NABU500T PO
[2017-08-16 09:29] VITALS: BP 161/84; PULSE 75; RESP 16; TEMP 97.8; O2SAT 97
[2017-08-16] MEDS ORDERED: KETOROLAC TROMETHAMINE 60 MG/2 ML (IM) VIAL IM ONE (10:00)
[2017-08-16] MEDS ORDERED: ORPHENADRINE INJ 60 MG/2 ML AMP IM ONE (10:00)
--- NOTE | 2017-08-16 10:29 | PD ---
HPI Chief Complaint: Back/ Neck Pain or Injury Time Seen by Provider: 09:46 Travel History International Travel<30 days: No Contact w/Intl Traveler<30days: No Traveled to known affect area: No History of Present Illness HPI 67-year-old female presents to the emergency department via [facility] with complaint of left lower back pain since Wednesday morning upon awakening and noticed the pain when she tried to get out of bed. Denies fall, injury, strain. Denies encopresis, incontinence, saddle anesthesias. Denies IV drug use or cancer. Denies paresthesias, loss of sensation, decreased range of motion, decreased strength to bilateral lower extremities. Denies radiation of pain. Denies fever, vomiting, abdominal pain. Denies dysuria, hematuria. Pain is worse with movement 01/10. Better at rest 05/12. Has taken Tylenol back pain for symptom management. Primary care provider is Dr. Hurt Allergies to sulfa. History of HI. Denies other significant past medical history. Has no other medical complaints. No other modifying factors or associated signs and symptoms. PFSH Past Medical History Arthritis: Yes Autoimmune Disease: No Blood Disorders: No Anxiety: No Depression: Yes Cancer: No Cardiac Catheterization: Yes Cardiovascular Problems: Yes High Cholesterol: Yes Cerebrovascular Accident: No Diminished Hearing: No Endocrine: No Genitourinary: No Headaches: No Immune Disorder: No Implanted Vascular Access Dvce: Yes Musculoskeletal: Yes Neurologic: No Psychiatric: No Reproductive: No Respiratory: No Migraines: No Myocardial Infarction: Yes (2017) Seizures: No Sickle Cell Disease: No ?: Not Past Surgical History Abdominal Surgery: No Body Medical Devices: FOSTRE. BREASTS Cardiac Surgery: No Ear Surgery: No Endocrine Surgery: No Eye Surgery: No Genitourinary Surgery: No Gynecologic Surgery: No Joint Replacement: Yes (LEFT THR) Oral Surgery: No Thoracic Surgery: No Other Surgery: Yes (FOSTER BREAST IMPLANTS) Social History Alcohol Use: Yes (OCC) Tobacco Use: Yes (05/04 PPD) Substance Use: No Allergies-Medications (Allergen,Severity, Reaction): Coded Allergies: Sulfa (Sulfonamide Antibiotics) (Unverified Allergy, Severe, HIVES, ) Reported Meds & Prescriptions Reported Meds & Active Scripts Active Aspirin EC (Aspirin) 81 Mg Tabdr 81 Mg PO DAILY Metoprolol Tartrate 25 Mg Tab 12.5 Mg PO BID Brilinta (Ticagrelor) 90 Mg Tab 90 Mg PO BID Reported Nitroglycerin SL (Nitroglycerin) 0.4 Mg Subl 0.4 Mg SL DIRECTED PRN ONE TABLET UNDER THE TONGUE NEEDED FOR CHEST PAIN, MAY REPEAT EVERY FIVE MINUTES FOR A TOTAL OF 3 DOSES OR CALL 911 IF NO RELIEF Sertraline (Sertraline HCl) 100 Mg Tab 100 Mg PO DAILY Atorvastatin (Atorvastatin Calcium) 40 Mg Tab 40 Mg PO HS Review of Systems Except as stated in HPI: all other systems reviewed are Neg Physical Exam Narrative GENERAL: Well-nourished, well-developed female patient, in no acute distress; afebrile, nontoxic-appearing SKIN: Warm and dry. HEAD: Atraumatic. Normocephalic. EYES: Pupils equal and round. No scleral icterus. No injection or drainage. ENT: Mucosa pink and moist. Airway patent. NECK: Trachea midline. CARDIOVASCULAR: Regular rate and rhythm. No murmur appreciated. RESPIRATORY: No accessory muscle use. Breath sounds clear and equal bilaterally. No retractions or tachypnea. GASTROINTESTINAL: Abdomen soft, non-tender, nondistended. Positive bowel sounds. No hepato-splenomegaly, or palpable masses. No guarding. MUSCULOSKELETAL: Bilateral lower extremities supple and non-tense with 2+ pedal pulses and sensory intact; with full range of motion and 5/5 strength. Active dorsiflexion and extension of bilateral feet; 5/5 strength bilaterally with dorsiflexion and extension of bilateral feet. Left straight leg raise is positive for low back pain. Patient refusing to sit up at the side of the bed or get up to ambulate. No obvious deformities. No clubbing. No cyanosis. No edema. BACK: No CVA tenderness. No midline point tenderness on palpation of the lumbar spine. Tenderness on palpation of left lumbar iliosacral area. No obvious deformities. NEUROLOGICAL: Awake and alert. Oriented 3. No obvious cranial nerve deficits. Motor grossly within normal limits. Normal speech. Moves all extremities. 5/5 strength to all extremities. Sensory intact. PSYCHIATRIC: Appropriate mood and affect; insight and judgment normal. Data Data Last Documented VS Vital Signs Date Time Temp Pulse Resp B/P (MAP) Pulse Ox O2 Delivery O2 Flow Rate FiO2 08/16/17 11:23 16 08/16/17 09:29 97.8 75 161/84 (109) 97 Orders Orders Urinalysis - C+S If Indicated (08/16/17 09:47) Ketorolac Inj (Toradol Inj) (08/16/17 10:00) Orphenadrine Inj (Norflex Inj) (08/16/17 10:00) Labs Laboratory Tests Test 08/16/17 10:28 Urine Color YELLOW Urine Turbidity CLEAR Urine pH 6.0 Urine Specific [place] 1.014 Urine Protein NEG mg/dL Urine Glucose (UA) NEG mg/dL Urine Ketones NEG mg/dL Urine Occult Blood NEG Urine Nitrite NEG Urine Bilirubin NEG Urine Urobilinogen LESS THAN 2.0 MG/DL Urine Leukocyte Esterase NEG Urine WBC LESS THAN 1 /hpf Urine Squamous Epithelial Cells 1 /hpf Urine Bacteria RARE /hpf Microscopic Urinalysis Comment CULT NOT INDICATED MDM Medical Decision Making Medical Screen Exam Complete: Yes Emergency Medical Condition: Yes Medical Record Reviewed: Yes Differential Diagnosis Acute low back pain, low back strain, sciatica, pyelonephritis Narrative Course 67-year-old female arrives via [facility] with left lower back pain. Denies injury. Denies encopresis, incontinence, saddle anesthesias. Denies IV drug use or cancer. Patient is refusing to sit up on the side of the bed or ambulate, so exam is limited. Otherwise, neuro exam is unremarkable. 1300: Urinalysis unremarkable. On examination the patient reports that her pain is completely gone. She was able to stand up at the bedside and ambulate with no difficulty. Robaxin and ibuprofen prescribed for home. Instructed patient to follow up with primary care provider. Patient verbalizes understanding and agreement with treatment plan. Patient is medically cleared and stable for discharge. Discussed reasons to return to the emergency department. Patient agrees with treatment plan. The patients vital signs are stable and the patient is stable for outpatient follow-up and treatment. Patient discharged home, stable and in no acute distress. Diagnosis Primary Impression: Acute left-sided low back pain Qualified Codes: M54.5 - Low back pain Additional Impression: Spasm of muscle of lower back Referrals: Primary Care Physician Patient Instructions: Acute Low Back Pain (ED), General Instructions, Muscle Spasm (ED), Sciatica (ED) Additional Instructions: Tylenol or ibuprofen as directed and as needed for pain Robaxin as prescribed and as needed for muscle spasms Heating pad and/or ice to affected area to reduce pain Avoid aggravating activities; increase activity as tolerated Follow-up with primary care provider Return to emergency department immediately with worsening of symptoms Med/Other Pt SpecificInfo: Prescription(s) given Scripts Methocarbamol (Robaxin) 500 Mg Tab 500 MG PO QID Y for MUSCLE SPASM, #30 TAB 0 Refills Prov: Ciara Sanches 08/16/17 Disposition: 01 DISCHARGE HOME Condition: Stable Ciara Sanches Aug 16, 2017 10:29
[2017-08-16 10:44] LABS: BACTERIA, URINE RARE /hpf; BILIRUBIN, URINE NEG (NEG); BLOOD, URINE NEG (NEG); GLUCOSE,URINE NEG (NEG); KETONE, URINE NEG (NEG); NITRITE,URINE NEG (NEG); SQUAMOUS EPITHELIAL CELL URINE 1 /hpf (0-5); URINE COLOR YELLOW (YELLW/STRAW); URINE LEUKOCYTE ESTERASE NEG (NEG)
[2017-08-16] MEDS ORDERED: NITR1SUB3 SL (11:21)
[2017-08-16] MEDS ORDERED: ATOR40TA16 PO (11:21)
[2017-08-16] MEDS ORDERED: SERT-129 PO (11:21)
[2017-08-16 11:23] VITALS: RESP 16
[2017-08-16] MEDS ORDERED: ROBA500T PO (13:06)
== END 2017-08-16 13:52 | disposition home or self-care (01) ==
LOC: NEPD 09:23
DX: M54.5 Low back pain (principal); M62.830 Muscle spasm of back; E78.00 Pure hypercholesterolemia, unspecified; I25.2 Old myocardial infarction; F32.9 Major depressive disorder, single episode, unspecified; F17.210 Nicotine dependence, cigarettes, uncomplicated; Z88.2 Allergy status to sulfonamides; Z79.899 Other long term (current) drug therapy
CPT/HCPCS: 81001; 96372; 99283; J1885; J2360